=== PATIENT | female | born 2000 | race Asian ===

== ENCOUNTER 2020-03-21 21:39 | Inpatient (IN) | payer OTHER, MEDICAID ==
[~2020-03-21] VITALS: Ht 154.9 cm; Wt 53.4 kg
[2020-03-21] MEDS ORDERED: HYDR-4031 PO (22:59)
[2020-03-21] MEDS ORDERED: METF-960 PO (22:59)
[2020-03-21] MEDS ORDERED: FLUO-191 PO (22:59)
[2020-03-21] MEDS ORDERED: ACETAMINOPHEN 325 MG TABLET PO ONE (23:15)
[2020-03-21 23:25] LABS: BASOPHILS % (AUTO) 0.5 % (0.0-2.0); EOSINOPHILS % (AUTO) 0.9 % (1.0-6.0); HEMATOCRIT 40.2 % (36-46); HEMOGLOBIN 12.9 g/dL (12.0-16.0); LYMPHOCYTES # (AUTO) 2.7 K/uL (1.0-4.8); LYMPHOCYTES % (AUTO) 35.7 % (22.0-44.0); MEAN CORPUSCULAR HEMOGLOBIN 31.1 pg (26.0-34.0); MEAN CORPUSCULAR HGB CONC 32.2 G/dL (31.0-37.0); MEAN CORPUSCULAR VOLUME 97 fL (80-100); MONOCYTES # (AUTO) 0.5 K/uL (0.1-1.0); MONOCYTES % (AUTO) 6.7 % (2.0-9.0); NEUTROPHILS # (AUTO) 4.3 K/uL (1.8-7.7); NEUTROPHILS % (AUTO) 56.2 % (40.0-70.0); PLATELET COUNT (AUTO) 273 K/uL (150-450); RED BLOOD CELL COUNT(AUTO) 4.16 MIL/uL (4.00-5.20); RED CELL DISTRIBUTION WIDTH 12.9 % (11.5-14.5)
[2020-03-21 23:34] LABS: ANION GAP 3 mmol/L (8-16); CALCIUM, TOTAL 8.7 mg/dL (8.8-10.5); CARBON DIOXIDE 31 mmol/L (22-29); CHLORIDE 108 mmol/L (98-107); CREATININE 0.74 mg/dL (0.60-1.30); GLOMERULAR FILTR. RATE CALC > 60 mL/min (>60); GLUCOSE,RANDOM 107 mg/dL (70-110); POTASSIUM 3.8 mmol/L (3.5-5.1); SODIUM SERUM 142 mmol/L (136-145); UREA NITROGEN, BLOOD 8 mg/dL (7-18)
[2020-03-21 23:39] LABS: ALANINE AMINOTRANSFERASE 14 U/L (12-78); ALBUMIN 3.5 g/dL (3.4-5.0); ALKALINE PHOSPHATASE 59 U/L (46-116); ASPARTATE AMINOTRANSFERASE 13 U/L (15-37); BILIRUBIN,TOTAL 0.4 mg/dL (0.1-1.0)
[2020-03-21 23:58] LABS: COVID AG,FIA SOURCE NASOPHARYNGEAL
[2020-03-22] MEDS ORDERED: QUEtiapine FUMARATE 100 MG TABLET PO PRN (00:45)
[2020-03-22] MEDS ORDERED: ZOLPIDEM TARTRATE 10 MG TABLET PO PRN (00:45)
[2020-03-22] MEDS ORDERED: LORazepam 2 MG TABLET PO PRN (00:45)
[2020-03-22 07:16] VITALS: BP 122/77
[2020-03-22] MEDS ORDERED: INFLUENZA VIRUS VACCINE QVS 2020-21 (6MO+)/PF 60 MCG/0.5 ML SYRINGE IM ONE (07:30)
[2020-03-22] MEDS ORDERED: CloNIDine HCL 0.1 MG TABLET PO PRN (07:45)
[2020-03-22] MEDS ORDERED: LOPERAMIDE HCL 2 MG CAPSULE PO PRN (07:45)
[2020-03-22] MEDS ORDERED: GuaiFENesin/D-METHORPHAN [SUGAR-FREE] 200-20MG/10 ML SYRUP UDCUP PO PRN (07:45)
[2020-03-22] MEDS ORDERED: MAGNESIUM HYDROXIDE SUSPENSION 30 ML UDCUP PO PRN (07:45)
[2020-03-22] MEDS ORDERED: ONDANSETRON HCL 4 MG TABLET PO PRN (07:45)
[2020-03-22] MEDS ORDERED: PETROLATUM,WHITE 28 GM JELLY TP PRN (07:45)
[2020-03-22] MEDS ORDERED: NICOTINE 14 MG/24 HOUR PATCH TD PRN (07:45)
[2020-03-22] MEDS ORDERED: ACETAMINOPHEN 325 MG TABLET PO PRN (07:45)
[2020-03-22] MEDS ORDERED: MAG HYDROX/AL HYDROX/SIMETH ES 30 ML SUSPENSION UDCUP PO PRN (07:45)
[2020-03-22] MEDS ORDERED: DOCUSATE SODIUM 100 MG CAPSULE PO PRN (07:45)
[2020-03-22] MEDS ORDERED: ALBUTEROL SULFATE HFA 90 MCG/PUFF 8 GM INHALER IH PRN (07:45)
[2020-03-22 08:29] VITALS: BP 107/67
[2020-03-22] MEDS ORDERED: HydrOXYzine PAMOATE 25 MG CAPSULE PO ONE (13:15)
[2020-03-22] MEDS: FLUoxetine HCL 20 MG CAPSULE PO SCH (13:46)
[2020-03-22 16:06] VITALS: BP 104/71
[2020-03-22] MEDS: HydrOXYzine PAMOATE 25 MG CAPSULE PO SCH (19:54)
[2020-03-23 06:27] VITALS: BP 104/74
[2020-03-23 08:07] LABS: CHOL/HDL RATIO 3.7 (3.9-5.7)
[2020-03-23 08:27] VITALS: BP 94/65
[2020-03-23] MEDS: FLUoxetine HCL 20 MG CAPSULE PO SCH (08:35)
[2020-03-23] MEDS: HydrOXYzine PAMOATE 25 MG CAPSULE PO SCH ×2 (08:35→17:03)
[2020-03-23 16:23] VITALS: BP 108/82
[2020-03-23] MEDS: RisperiDONE 0.5 MG TABLET PO SCH (20:23)
[2020-03-24 01:10] VITALS: BP 103/62
[2020-03-24 08:18] VITALS: BP 103/60
[2020-03-24] MEDS: HydrOXYzine PAMOATE 25 MG CAPSULE PO SCH ×2 (09:05→17:20)
[2020-03-24] MEDS: FLUoxetine HCL 20 MG CAPSULE PO SCH (09:05)
[2020-03-24 17:39] VITALS: BP 107/69
[2020-03-24] MEDS: RisperiDONE 0.5 MG TABLET PO SCH (20:41)
[2020-03-25 02:11] VITALS: BP 103/69
[2020-03-25] MEDS ORDERED: RISP0.5T61 PO (07:57)
[2020-03-25] MEDS: FLUoxetine HCL 20 MG CAPSULE PO SCH (08:27)
[2020-03-25] MEDS: HydrOXYzine PAMOATE 25 MG CAPSULE PO SCH (08:27)
[2020-03-25 08:28] VITALS: BP 121/70
== END 2020-03-25 14:00 | disposition home or self-care (01) | DRG 885 ==
LOC: EMS 21:41 → B2S 03-22 00:45
PROC: 3E0234Z Introduction of Serum, Toxoid and Vaccine into Muscle, Percutaneous Approach (ICD-10-PCS; principal; 2020-03-22)
DX: F33.3 Major depressive disorder, recurrent, severe with psychotic symptoms (principal); R45.851 Suicidal ideations; Z23 Encounter for immunization; Z88.8 Allergy status to other drugs, medicaments and biological substances; Z20.828 Contact with and (suspected) exposure to other viral communicable diseases; E78.5 Hyperlipidemia, unspecified; I95.9 Hypotension, unspecified; F19.10 Other psychoactive substance abuse, uncomplicated
CPT/HCPCS: 87426; 90686; G0480